=== PATIENT | male | born 1990 | race Caucasian/White ===

== ENCOUNTER 2018-03-21 12:03 | Day surgery (SDC) | payer OTHER ==
[~2018-03-21] VITALS: Ht 172.7 cm; Wt 63.0 kg
[~2018-03-21 12:03] MED LIST: None per pt
[2018-03-21 12:20] VITALS: BP 131/74
[2018-03-21] MEDS ORDERED: LACTATED RINGERS 1,000 ML IV SCH (12:20)
[2018-03-21] MEDS ORDERED: BUPIVACAINE/PF-EPI 0.5% 1:200K ONE (12:29)
[2018-03-21] MEDS ORDERED: FENTANYL PF 250 MCG/5ML ONE (12:36)
[2018-03-21] MEDS ORDERED: MIDAZOLAM 1 MG/ML, 2ML ONE (12:36)
[2018-03-21] MEDS ORDERED: DEXAMETHASONE 4 MG/ML, 1ML ONE ×2 (12:38→13:02)
[2018-03-21] MEDS ORDERED: SUCCINYLCHOLINE 20 MG/ML, 10ML ONE ×2 (12:47→13:03)
[2018-03-21] MEDS ORDERED: KETOROLAC 30 MG/1 ML ONE ×2 (12:47→13:02)
[2018-03-21] MEDS ORDERED: ONDANSETRON 2MG/ML, 2ML ONE ×2 (12:47→13:02)
[2018-03-21] MEDS ORDERED: ROCURONIUM 10 MG/ML,10ML ONE (12:47)
[2018-03-21] MEDS ORDERED: CEFAZOLIN 1,000 MG ONE (12:47)
[2018-03-21] MEDS ORDERED: PROPOFOL 10 MG/ML, 20ML ONE ×2 (12:47→13:03)
[2018-03-21] MEDS ORDERED: ACETAMINOPHEN 325 MG TABLET PO PRN (13:00)
[2018-03-21] MEDS ORDERED: EPHEDRINE 50 MG/ML, 1ML IVPush PRN (13:00)
[2018-03-21] MEDS ORDERED: PROMETHAZINE 25 MG/ML, 1ML IV PRN (13:00)
[2018-03-21] MEDS ORDERED: DIAZEPAM 5 MG/ML, 2ML IVPush PRN (13:00)
[2018-03-21] MEDS ORDERED: ONDANSETRON ODT 8 MG PO PRN (13:00)
[2018-03-21] MEDS ORDERED: LABETALOL 5MG/ML, 20ML IV PRN (13:00)
[2018-03-21] MEDS ORDERED: MORPHINE SULFATE 4 MG/ML, 1ML IVPush PRN (13:00)
[2018-03-21] MEDS ORDERED: FENTANYL PF 100 MCG/2ML IV PRN (13:00)
[2018-03-21] MEDS ORDERED: ONDANSETRON 2MG/ML, 2ML IV PRN (13:00)
[2018-03-21] MEDS ORDERED: HALOPERIDOL 5 MG/ML IV PRN (13:00)
[2018-03-21] MEDS ORDERED: ALBUTEROL SULFATE 2.5 MG/3 ML NPPB PRN (13:00)
[2018-03-21] MEDS ORDERED: MEPERIDINE/PF 25MG/0.5ML IVPush PRN (13:00)
[2018-03-21] MEDS ORDERED: PROMETHAZINE 12.5 MG SUPP PR PRN (13:00)
[2018-03-21] MEDS ORDERED: MIDAZOLAM 1 MG/ML, 2ML IV PRN (13:00)
[2018-03-21] MEDS ORDERED: OXYcodone 5 MG/5 ML ORAL.SOL UDC PO PRN ×2 (13:00→13:30)
[2018-03-21] MEDS ORDERED: HYDROmorphone 1 MG/ML, 1ML IV PRN (13:00)
[2018-03-21] MEDS ORDERED: hydrALAzine 20 MG/ML, 1ML IV PRN (13:00)
[2018-03-21] MEDS ORDERED: ROCURONIUM 10MG/ML,5ML ONE (13:03)
[2018-03-21] MEDS ORDERED: HYDROmorphone 2 MG/ML, 1ML ONE (14:19)
[2018-03-21] MEDS ORDERED: ACETAMINOPHEN 650 MG/20.3 ML UDC ONE (14:19)
[2018-03-21] MEDS ORDERED: OXYcodone 5 MG/5 ML ORAL.SOL UDC ONE (14:19)
== END 2018-03-21 17:40 | disposition home or self-care (01) ==
LOC: OUT 12:03 → MERGE 14:00 → EDSTATUS 14:00 → OUT 17:40
PROVIDERS: ATTEND Surgery
DX: K40.90 Unilateral inguinal hernia, without obstruction or gangrene, not specified as recurrent (principal); D17.6 Benign lipomatous neoplasm of spermatic cord; F10.21 Alcohol dependence, in remission
CPT/HCPCS: 49650; C1781; J0330; J0690; J1100; J1170; J1885; J2250; J2405; J2704; J3010; J7120; S2900